=== PATIENT | male | born 1995 | race African-American/Black ===

== ENCOUNTER 2017-08-02 01:17 | Emergency (ER) | payer SELFPAY ==
[~2017-08-02] VITALS: Ht 175.3 cm; Wt 61.2 kg
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
[2017-08-02] MEDS ORDERED: TDAP [DIPH/PERTUSSIS/TET] 0.5 ML VIAL IM ONE ×2 (01:30→01:35)
[2017-08-02] MEDS ORDERED: ONDANSETRON 4 MG TAB.RAPDIS PO ONE (01:30)
[2017-08-02] MEDS ORDERED: HYDROCODONE/APAP 5/325MG 1 EACH TABLET PO ONE (01:30)
[2017-08-02] MEDS ORDERED: ONDANSETRON 4 MG TAB.RAPDIS ONE (01:34)
[2017-08-02] MEDS ORDERED: HYDROCODONE/APAP 5/325MG 1 EACH TABLET ONE (01:34)
--- NOTE | 2017-08-02 01:45 | NUR ---
HR LEADER AT BEDSIDE
[2017-08-02] MEDS ORDERED: CEFAZOLIN 1 GM ONE (01:49)
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
[2017-08-02] MEDS ORDERED: CEFAZOLIN 1 GM VIAL IM ONE (02:00)
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
--- NOTE | 2017-08-02 03:56 | NUR ---
POLICE AT BEDSIDE STILL EVALUATING PATIENT
[2017-08-02 04:07] VITALS: BP 118/53
== END 2017-08-02 04:08 ==
LOC: ER 01:22
DX: S21.101A Unspecified open wound of right front wall of thorax without penetration into thoracic cavity, initial encounter (principal); S41.101A Unspecified open wound of right upper arm, initial encounter; W34.09XA Accidental discharge from other specified firearms, initial encounter; Y93.89 Activity, other specified; Y92.89 Other specified places as the place of occurrence of the external cause; Y99.8 Other external cause status
CPT/HCPCS: 71045-TC; 73060-TC; 90715; A4606; A6402; J0690; Q0162; Z7610